=== PATIENT | female | born 1940 | race Caucasian/White ===

== ENCOUNTER 2018-09-02 21:11 | Observation (INO) | payer OTHER ==
[2018-09-02] MEDS ORDERED: NACL 0.9% 3 ML SYG IV (22:30)
[2018-09-02] MEDS ORDERED: ALBUTEROL/IPRATROPIUM (NEB) 3 ML AMP HHN (22:30)
[2018-09-03] MEDS: ACETAMINOPHEN 325 MG TAB PO (06:18)
[2018-09-03] MEDS: ONDANSETRON 4 MG INJ IV ×3 (06:20→15:07)
[2018-09-03 06:45] LABS: ADD MAN DIFF? NO
[2018-09-03 07:02] LABS: WHITE BLOOD COUNT 7.5 10^3/ul (4.8-10.8)
[2018-09-03 07:02] LABS: BASOPHILS % 0.3 % (0.0-2.0); EOSINOPHILS % 0.3 % (0.0-7.0); HEMATOCRIT 33.4 % (37.0-47.0); HEMOGLOBIN 12.3 g/dl (12.0-16.0); LYMPHOCYTES # 1.8 10^3/ul (0.8-2.9); LYMPHOCYTES % 23.6 % (15.0-51.0); MEAN CORPUSCULAR HEMOGLOBIN 42.7 pg (29.0-33.0); MEAN CORPUSCULAR HGB CONC 36.8 g/dl (32.0-37.0); MEAN PLATELET VOLUME 9.6 fl (7.4-10.4); MONOCYTE # 0.3 10^3/ul (0.3-0.9); MONOCYTES % 4.5 % (0.0-11.0); NEUTROPHIL # 5.3 10^3/ul (1.6-7.5); PLATELET COUNT 268 10^3/UL (140-415); RED BLOOD COUNT 2.88 10^6/ul (4.20-5.40)
[2018-09-03 07:07] LABS: HEMOGLOBIN A1C 7.3 % (0-5.9)
[2018-09-03 07:25] LABS: ALANINE AMINOTRANSFERASE 22 IU/L (13-69); ALBUMIN 3.8 g/dl (3.3-4.9); ALBUMIN/GLOBULIN RATIO 1.22; ALKALINE PHOSPHATASE 64 IU/L (42-121); ANION GAP 11 (5-13); ASPARTATE AMINO TRANSFERASE 31 IU/L (15-46); BILIRUBIN,INDIRECT 0.7 mg/dl (0-1.1); BILIRUBIN,TOTAL 0.7 mg/dl (0.2-1.3); BLOOD UREA NITROGEN 14 mg/dl (7-20); CALCIUM 9.3 mg/dl (8.4-10.2); CARBON DIOXIDE 28 mmol/L (21-31); CHLORIDE 102 mmol/L (97-110); CREATININE 0.53 mg/dl (0.44-1.00); GLUCOSE 170 mg/dl (70-220); POTASSIUM 4.2 mmol/L (3.5-5.1); SODIUM 141 mmol/L (135-144); TOTAL PROTEIN 6.9 g/dl (6.1-8.1)
[2018-09-03] MEDS: metFORMIN 500 MG TAB PO ×2 (08:00→18:00)
[2018-09-03] MEDS: DONEPEZIL 5 MG TAB PO (10:09)
[2018-09-03] MEDS: BACLOFEN 10 MG TAB PO ×3 (10:09→21:00)
[2018-09-03] MEDS: HEPARIN 5,000 UNIT/1 ML VIAL SC (10:11)
[2018-09-03] MEDS: predniSONE 20 MG TAB PO (15:57)
[2018-09-03 17:47] LABS: FOLATE > 20.0 ng/ml (2.8-20.0)
[2018-09-03] MEDS ORDERED: DEXTROSE 50% 50 ML SYRINGE IV ×2 (18:30)
[2018-09-03] MEDS ORDERED: GLUCAGON 1 MG INJ IM (18:30)
[2018-09-03] MEDS: INSULIN ASPART [NOVOLOG] 3 ML PEN SC ×3 (18:30→21:58)
[2018-09-03] MEDS ORDERED: GLUCOSE GEL 15 GRAM TUBE PO ×2 (18:30)
[2018-09-03] MEDS ORDERED: GLUCOSE GEL 15 GRAM TUBE BUCCAL (18:30)
[2018-09-03] MEDS: LIDOCAINE 5% PATCH TD (18:42)
[2018-09-03] MEDS: INSULIN GLARGINE [LANTus] (100 UNITS/ML) SYG SC (21:59)
[2018-09-04] MEDS: ACCU-CHEK XX (01:41)
[2018-09-04] MEDS: LIDOCAINE 5% PATCH TD (08:56)
[2018-09-04] MEDS: metFORMIN 500 MG TAB PO (08:58)
[2018-09-04] MEDS: ENOXAPARIN 40 MG/0.4 ML SYG SC (09:00)
[2018-09-04] MEDS: predniSONE 20 MG TAB PO (09:00)
[2018-09-04] MEDS: BACLOFEN 10 MG TAB PO (09:00)
[2018-09-04] MEDS: DONEPEZIL 5 MG TAB PO (09:00)
[2018-09-04] MEDS: INSULIN ASPART [NOVOLOG] 3 ML PEN SC (09:26)
[2018-09-05] MEDS ORDERED: INSULIN GLARGINE [LANTus] (100 UNITS/ML) SYG SC (21:45)
== END 2018-09-04 14:50 | disposition home health service (06) ==
LOC: 2NE 09-03 17:40
PROVIDERS: Internal Medicine
DX: M54.5 Low back pain (principal); M48.061 Spinal stenosis, lumbar region without neurogenic claudication; I10 Essential (primary) hypertension; G30.0 Alzheimer's disease with early onset; F02.80 Dementia in other diseases classified elsewhere, unspecified severity, without behavioral disturbance, psychotic disturbance, mood disturbance, and anxiety; E11.8 Type 2 diabetes mellitus with unspecified complications; Z79.84 Long term (current) use of oral hypoglycemic drugs
CPT/HCPCS: 80053; 82607; 82746; 82962; 83036; 85025; 97161; 99217; G0378